=== PATIENT | male | born 1995 | race Caucasian/White ===

== ENCOUNTER 2024-11-17 12:48 | Outpatient (CLI) | payer BC, SELFPAY ==
--- NOTE | ~2024-11-17 | CT_ITS ---
EXAMINATION: CT abdomen wo con DATE: 11/17/2024 13:04 INDICATION: Left upper quadrant abdominal pain. TECHNIQUE: Computed tomography (CT) of the abdomen was performed without intravenous contrast. Automated exposure control and iterative reconstruction technique were employed. The dose-length product was 497.35 mGy-cm. COMPARISON: None. FINDINGS: The visualized portions of the lung bases are clear without pneumonia or pleural effusion. The heart size is normal. No pericardial effusion. The liver, gallbladder, spleen, pancreas, adrenal glands, and kidneys are normal. There is no urolithiasis. There are no dilated loops of bowel. There are no pathologically enlarged lymph nodes. There is no free intraperitoneal fluid. There is mild fat stranding at the root of the small bowel mesentery. There is mild lumbar spondylosis. IMPRESSION: 1. Mild fat stranding at the root of the small bowel mesentery, which may be seen with edema or inflammation/scarring (mesenteric panniculitis). Reviewed, dictated and finalized at location E. IMPRESSION: 1. Mild fat stranding at the root of the small bowel mesentery, which may be se en with edema or inflammation/scarring (mesenteric panniculitis).
== END 2024-11-17 12:49 | disposition home or self-care (01) ==
LOC: MICIMG 12:49
PROVIDERS: PCP Family Medicine; Visit Provider Family Medicine
DX: R10.12 Left upper quadrant pain (principal)
CPT/HCPCS: 74150

== ENCOUNTER 2025-01-31 09:50 | Outpatient (CLI) | payer BC, SELFPAY ==
--- NOTE | ~2025-01-31 | US_ITS ---
EXAMINATION: US soft tissue abdomen, 01/31/2025 9:56 [employer] HISTORY: mass possible lymphadenopathy Comparison: None Technique: Hummel-scale and color Doppler images were obtained. Findings: Correlating with the palpable area within the subcutaneous tissues there is a solid appearing focus measuring 1.8 x 0.7 x 2.6 cm with no increased flow. IMPRESSION: 1. Probable lipoma. If there is pain or clinical concern correlate with CT or MRI Reviewed, dictated and finalized at location P. [employer]OR [employer] CANDY IMPRESSION: 1. Probable lipoma. If there is pain or clinical concern correlate with CT or M RI
== END 2025-01-31 09:51 | disposition home or self-care (01) ==
DX: R59.0 Localized enlarged lymph nodes (principal); R19.00 Intra-abdominal and pelvic swelling, mass and lump, unspecified site
CPT/HCPCS: 76705